=== PATIENT | male | born 1955 ===

== ENCOUNTER 2017-11-06 14:54 | Outpatient (RCR) | payer OTHER ==
[~2017-11-06] VITALS: Ht 180.3 cm; Wt 92.5 kg
[~2017-11-06 14:54] MED LIST: AUG875 PO; CIP500 PO; HYOS0.3729 PO; IBU600 PO; LOR5 PO; LOR7.5/325 PO; MET10 PO; METR-1 PO; NO RTN MEDS; PER PO; PRO25 PO
--- NOTE | 2017-11-09 13:42 | Medical Nutrition Therapy ---
Nutrition Anthropometrics Height (Inches): 71 (stated) Weight (Pounds): 204 (stated) Derrick Nutrition Score: Derrick Nutrition Risk Score: Dietary Referral Nutrition Risk Factors: Nutrition Risk Comment: Nutrition/Food History Breakfast: egg, toast, banana, milk Lunch: grilled cheese/soup or sand /chips or fries occasional salad Dinner: meat, 1c potatoe ,1c veg, or pancakes & fruit Snacks: cookies, ice cream, granola bar, banana Nutritional Education Nutrition Education Topic: Diabetic Nutrition Learning Readiness: Interested Teaching Methods: Discussion, Handout, Demonstration Teaching Recipient: Patient, Significant Other Nutrition Counseling: Pt states dx diabetes 5 years ago but didn't attend classes at that time. States has lost 50# in the past 10 year by trying. Pt states does not do very much exercise at this time but will be starting cardio rehab. Pt set a behvioural goal or 15# wt loss by increaseing exercise and limiting CHO to 60gm/meal. Reviewed glycemic response. Discussed CHO counting and plate method . Provided meal plan of 60gm CHO or 2c using plate method. Nutrition Monitoring & Eval RD Patient Assessment Time: 75 minutes Nutritional Comment: Provided 75 minutes of MNT for diabetes. Set behavioural goal and support plan Copies To Copies to: LIBBY STEVE BETH Nov 06, 2017 17:37
[2017-12-03] MEDS ORDERED: NIT4 SL (17:50)
[2017-12-03] MEDS ORDERED: ROSU5TAB8 PO (17:50)
[2017-12-03] MEDS ORDERED: CLOP75TA PO (17:50)
[2017-12-03] MEDS ORDERED: LISI5TAB25 PO (17:50)
[2017-12-03] MEDS ORDERED: METF-410 PO (17:50)
[2017-12-03] MEDS ORDERED: ASPI-1471 PO (18:05)
--- NOTE | 2017-12-05 16:15 | Medical Nutrition Therapy ---
Nutritional Education Nutrition Education Topic: Diabetic Nutrition Learning Readiness: Interested Teaching Methods: Discussion, Handout, Demonstration Response to Teaching: Verbalize understanding Teaching Recipient: Patient, Significant Other Nutrition Counseling: Provided group diabetes education on nutrtion. Reveiwed: process of digestion; function of CHO, protein and fat; glycemic index; reading labels, portion sizes; heart healthy intake; eating out, alcohol. Nutrition Monitoring & Eval RD Patient Assessment Time: 60 minutes Nutritional Comment: Provided 60 minutes of diabetes education in a group setting. Copies To Copies to: LIBBY STEVE BETH Dec 05, 2017 16:15
== END 2017-12-11 ==
LOC: DIET 14:54
PROVIDERS: ATTEND Nurse Practitioner Family
DX: E11.9 Type 2 diabetes mellitus without complications (principal); E78.5 Hyperlipidemia, unspecified
CPT/HCPCS: 97802; G0109

== ENCOUNTER 2017-12-03 17:43 | Emergency (ER) | payer OTHER ==
[~2017-12-03] VITALS: Ht 180.3 cm; Wt 92.5 kg
[2017-12-03] MEDS ORDERED: METF-410 PO (17:50)
[2017-12-03] MEDS ORDERED: NIT4 SL (17:50)
[2017-12-03] MEDS ORDERED: LISI5TAB25 PO (17:50)
[2017-12-03] MEDS ORDERED: CLOP75TA PO (17:50)
[2017-12-03] MEDS ORDERED: ROSU5TAB8 PO (17:50)
[2017-12-03] MEDS ORDERED: ASPIRIN 81 MG CHEW PO ONE (18:05)
[2017-12-03] MEDS ORDERED: ASPI-1471 PO (18:05)
--- NOTE | 2017-12-03 18:05 | EKG ---
FACILITY: [facility] - [place] PATIENT NAME: IDANIA CHUNG : [id number] MR: [id number] V: [id number] EXAM DATE: ORDERING PHYSICIAN: HEIDY BANGURA TECHNOLOGIST: MARITZA Hanks Reason : CARDIAC Blood Pressure : / mmHG Vent. Rate : 064 BPM Atrial Rate : 064 BPM P-R Int : 156 ms QRS Dur : 100 ms QT Int : 412 ms P-R-T Axes : 073 054 057 degrees QTc Int : 425 ms Normal sinus rhythm Cannot rule out Anterior infarct (cited on or before 03-DEC-2017) Abnormal ECG When compared with ECG of 30-OCT-2017 11:22, No significant change was found Confirmed by EDUAR WANG ([id number]) on 12/03/2017 8:58:22 PM Referred By: MARY Confirmed By:EDUAR WANG
[2017-12-03 18:11] LABS: PLATELET COUNT, AUTOMATED 200 K/uL (150-450)
--- NOTE | 2017-12-03 18:11 | ER Report ---
History and Physical Time Seen By MD: 17:52 Hx. of Stated Complaint: PT REPORTS CHEST PAIN THAT STARTED LAST NIGHT WITH PAIN DOWN R ARM (HEIDY BANGURA PA-C) HPI/ROS CHIEF COMPLAINT: Chest pain HISTORY OF PRESENT ILLNESS: Patient is a 62-year-old male coming by his , who presents to ED with complaint of chest pain in his head intermittently for the last 2 days. Patient states that he had Deandre didn't placed 1 month ago at [facility] after he was having some intermittent chest pain. He states that he has been going to cardiac rehabilitation and did go today. He states that he felt good at cardiac rehabilitation denying any chest pain with exercise there. He states that he has been having some this intermittent chest pain but does not seem to be related to exertion or eating. He states that it feels like indigestion but is uncertain. He denies any shortness of breath. He states that it does feel slightly different than his chest pain previously when he and a stent placed. He denies any palpitations. He is not having any nausea or vomiting. REVIEW OF SYSTEMS: Constitutional: No fever, no chills. Eyes: No discharge. ENT: No sore throat. Cardiovascular: See history of present illness. Respiratory: See history of present illness. No cough. Gastrointestinal: No abdominal pain, no vomiting. Genitourinary: No hematuria. Musculoskeletal: No back pain. Skin: No rashes. Neurological: No headache. (HEIDY ABNGURA PA-C) Allergies: Coded Allergies: No Known Allergies (Verified Allergy, Mild, 12/03/17) Home Meds Reported Medications Aspirin (ASPIR 81) 81 Mg Tablet.dr, 81 MG PO QDAY, TAB 12/03/17 Metformin Hcl (METFORMIN HCL) 500 Mg Tablet, 1 TAB PO BID, TAB 12/03/17 Clopidogrel Bisulfate (CLOPIDOGREL) 75 Mg Tablet, 1 TAB PO QDAY, TAB 12/03/17 Lisinopril (LISINOPRIL) 5 Mg Tablet, 5 MG PO QDAY, TAB 12/03/17 Rosuvastatin Calcium (CRESTOR) 5 Mg Tablet, 5 MG PO QDAY 12/03/17 Nitroglycerin (NITROSTAT) 0.4 Mg Subl, 0.4 MG SL Q5MIN 12/03/17 Discontinued Reported Medications Ibuprofen (Motrin) 600 Mg Tab, 600 MG PO TID, 0 Refills TAKE WITH FOOD 05/15/11 [No Rtn Meds] No Conflict Check, 0 Refills 05/15/09 Reviewed Nurses Notes: Yes Old Medical Records Reviewed: Yes (HEIDY BANGURA PA-C) Hx Smoking: No (HEIDY BANGURA PA-C) Constitutional Vital Sign - Last 24 Hours 12/03/17 12/03/17 12/03/17 12/03/17 17:43 17:47 17:48 17:49 Temp 98.1 Pulse 62 Resp 16 16 B/P (MAP) 145/85 151/96 (114) 145/85 (105) Pulse Ox 94 95 O2 Delivery Room Air 12/03/17 12/03/17 12/03/17 12/03/17 17:53 17:58 18:03 18:08 Pulse 67 72 62 64 Resp 11 17 10 12 Pulse Ox 95 95 94 95 12/03/17 12/03/17 12/03/17 12/03/17 18:13 18:18 18:23 18:28 Pulse 63 61 64 64 Resp 14 11 14 15 Pulse Ox 94 96 93 93 12/03/17 12/03/17 12/03/17 12/03/17 18:33 18:38 18:53 18:57 Pulse 62 68 61 Resp 10 11 8 B/P (MAP) 127/79 (95) Pulse Ox 93 94 95 12/03/17 12/03/17 12/03/17 12/03/17 19:02 19:17 19:30 19:32 Pulse 62 62 62 Resp 12 10 35 B/P (MAP) 124/71 (88) Pulse Ox 93 94 93 12/03/17 12/03/17 12/03/17 12/03/17 19:47 20:00 20:02 20:07 Pulse 66 60 63 Resp 14 8 11 B/P (MAP) 143/88 (106) Pulse Ox 93 96 95 12/03/17 12/03/17 12/03/17 12/03/17 20:22 20:30 20:37 20:52 Pulse 65 66 69 Resp 25 41 51 B/P (MAP) 148/89 (108) Pulse Ox 93 95 94 12/03/17 12/03/17 12/03/17 12/03/17 21:00 21:07 21:22 21:27 Pulse 69 68 65 Resp 23 15 12 B/P (MAP) 146/91 (109) Pulse Ox 91 93 96 12/03/17 12/03/17 12/03/17 12/03/17 21:30 21:42 21:57 22:00 Pulse 77 85 Resp 20 21 B/P (MAP) 141/95 (110) 153/88 (109) Pulse Ox 93 92 12/03/17 12/03/17 12/03/17 22:12 22:27 22:30 Pulse 66 60 Resp 24 46 B/P (MAP) 134/84 (101) Pulse Ox 93 95 (J LUISCHARISSA Sandoval DO) Physical Exam General Appearance: The patient is alert, has no immediate need for airway protection and no signs of toxicity. Patient appears to be in no acute distress. Eyes: Pupils equal and round no pallor or injection. ENT, Mouth: Mucous membranes are moist. Respiratory: There are no retractions, lungs are clear to auscultation. Cardiovascular: Regular rate and rhythm. Gastrointestinal: Abdomen is soft and non tender, no masses, bowel sounds normal. Skin: Warm and dry, no rashes. Musculoskeletal: Neck is supple non tender. Extremities are nontender, nonswollen and have full range of motion. DIFFERENTIAL DIAGNOSIS: After history and physical exam differential diagnosis was considered for chest pain including but not limited to myocardial ischemia, pericarditis pulmonary embolus, chest wall pain, pleural inflammation and pulmonary infectious causes. (HEIDY BANGURA PA-C) Medical Decision Making Data Points Result Diagram: 12/03/17 1755 12/03/17 1755 Laboratory Hematology Test 12/03/17 17:55 12/03/17 22:00 Red Blood Count 5.42 M/uL (4.00-5.60) Mean Corpuscular Volume 85.0 fL (80.0-96.0) Mean Corpuscular Hemoglobin 28.6 pg (26.0-33.0) Mean Corpuscular Hemoglobin Concent 33.7 g/dL (32.0-36.0) Red Cell Distribution Width 13.3 % (11.5-14.5) Mean Platelet Volume 6.9 fL (7.2-11.1) Neutrophils (%) (Auto) 63.0 % (39.4-72.5) Lymphocytes (%) (Auto) 26.7 % (17.6-49.6) Monocytes (%) (Auto) 7.0 % (4.1-12.4) Eosinophils (%) (Auto) 2.4 % (0.4-6.7) Basophils (%) (Auto) 0.9 % (0.3-1.4) Nucleated RBC Relative Count (auto) 0.0 /100WBC Neutrophils # (Auto) 3.9 K/uL (2.0-7.4) Lymphocytes # (Auto) 1.7 K/uL (1.3-3.6) Monocytes # (Auto) 0.4 K/uL (0.3-1.0) Eosinophils # (Auto) 0.1 K/uL (0.0-0.5) Basophils # (Auto) 0.1 K/uL (0.0-0.1) Nucleated RBC Absolute Count (auto) 0.00 K/uL Prothrombin Time 13.3 seconds (12.0-14.4) Prothromb Time International Ratio 1.01 Activated Partial Thromboplast Time 26 seconds (23-35) Sodium Level 139 mmol/L (137-145) Potassium Level 3.9 mmol/L (3.5-5.0) Chloride Level 102 mmol/L (98-107) Carbon Dioxide Level 26 mmol/L (22-30) Blood Urea Nitrogen 18 mg/dl (9-21) Creatinine 1.00 mg/dl (0.66-1.25) Glomerular Filtration Rate Calc > 60.0 Random Glucose 91 mg/dl (75-110) Calcium Level 9.2 mg/dl (8.4-10.2) Total Bilirubin 1.4 mg/dl (0.2-1.3) Aspartate Amino Transf (AST/SGOT) 30 U/L (0-35) Alanine Aminotransferase (ALT/SGPT) 42 U/L (0-56) Alkaline Phosphatase 57 U/L (0-126) Total Protein 7.6 gm/dl (6.3-8.2) Albumin 4.3 g/dl (3.5-5.0) Troponin I < 0.012 ng/ml Chemistry Test 12/03/17 17:55 12/03/17 22:00 White Blood Count 6.2 k/uL (4.5-11.0) Red Blood Count 5.42 M/uL (4.00-5.60) Hemoglobin 15.5 g/dL (14.0-18.0) Hematocrit 46.0 % (42.0-52.0) Mean Corpuscular Volume 85.0 fL (80.0-96.0) Mean Corpuscular Hemoglobin 28.6 pg (26.0-33.0) Mean Corpuscular Hemoglobin Concent 33.7 g/dL (32.0-36.0) Red Cell Distribution Width 13.3 % (11.5-14.5) Platelet Count 200 K/uL (150-450) Mean Platelet Volume 6.9 fL (7.2-11.1) Neutrophils (%) (Auto) 63.0 % (39.4-72.5) Lymphocytes (%) (Auto) 26.7 % (17.6-49.6) Monocytes (%) (Auto) 7.0 % (4.1-12.4) Eosinophils (%) (Auto) 2.4 % (0.4-6.7) Basophils (%) (Auto) 0.9 % (0.3-1.4) Nucleated RBC Relative Count (auto) 0.0 /100WBC Neutrophils # (Auto) 3.9 K/uL (2.0-7.4) Lymphocytes # (Auto) 1.7 K/uL (1.3-3.6) Monocytes # (Auto) 0.4 K/uL (0.3-1.0) Eosinophils # (Auto) 0.1 K/uL (0.0-0.5) Basophils # (Auto) 0.1 K/uL (0.0-0.1) Nucleated RBC Absolute Count (auto) 0.00 K/uL Prothrombin Time 13.3 seconds (12.0-14.4) Prothromb Time International Ratio 1.01 Activated Partial Thromboplast Time 26 seconds (23-35) Glomerular Filtration Rate Calc > 60.0 Calcium Level 9.2 mg/dl (8.4-10.2) Total Bilirubin 1.4 mg/dl (0.2-1.3) Aspartate Amino Transf (AST/SGOT) 30 U/L (0-35) Alanine Aminotransferase (ALT/SGPT) 42 U/L (0-56) Alkaline Phosphatase 57 U/L (0-126) Total Protein 7.6 gm/dl (6.3-8.2) Albumin 4.3 g/dl (3.5-5.0) Troponin I < 0.012 ng/ml Coagulation Test 12/03/17 17:55 Prothrombin Time 13.3 seconds Prothromb Time International Ratio 1.01 Activated Partial Thromboplast Time 26 seconds (CHARISSA AYERS DO) EKG/Imaging EKG Interpretation 12 lead EKG: Rhythm: Normal sinus rhythm, rate 64 bpm [place]: normal QRS: normal ST segments: No acute ST changes identified. Compared to previous EKG from 10/30/2018 and appears to be similar. Monitor Interpretation: Normal Sinus Rhythm Imaging CXR: IMPRESSION: 1. No acute cardiopulmonary process. 2. Tiny nodular opacity in the right midlung, not well appreciated previously. This could represent a small granuloma or postinflammatory. Suggest a follow-up chest x-ray in 3-6 months for reevaluation. Report Dictated By: Fco Randhawa at 12/03/2017 6:22 PM Report E-Signed By: Fco Randhawa at 12/03/2017 6:24 PM (HEIDY BANGURA PA-C) ED Course/Re-evaluation ED Course Will obtain labs, EKG, chest x-ray. Patient will be given aspirin 324 mg by mouth now. 12/03/2017 7:11:42 pm - discussed all labs, EKG, chest x-ray with patient. Everything appears to be essentially normal. Discussed patient with health information provider pianos and organs salesperson at [facility], Dr. Frost, who advises that patient stay for repeat troponin in 4-6 hours. He states that if this repeat troponin is normal and patient could be discharged safely with close follow-up with cardiology. He has point with cardiology in [address] Van. Discussed CXR result of lung nodule with pt and recommendation to have this rechecked in 3-6 months. Decision to Disposition Date: Dec 03, 2017 Turned Over 12/03/2017 7:46:16 pm : The care of the patient was turned over to Dr. Ayers, ED. Heidy Bangura PA-C I authorize my typed signature that I authenticated this report. (HEIDY BANGURA PA-C) Decision to Disposition Date: Dec 03, 2017 Decision to Disposition Time: 22:35 (CHARISSA AYERS DO) Depart Departure Latest Vital Signs Vital Signs Date Time Temp Pulse Resp B/P (MAP) Pulse Ox O2 Delivery O2 Flow Rate FiO2 12/03/17 22:30 134/84 (101) 12/03/17 22:27 60 46 95 12/03/17 17:43 98.1 Room Air (CHARISSA AYERS DO) Impression: Primary Impression: Chest pain of unknown etiology Additional Impression: Status post angioplasty with stent Condition: Improved Disposition: HOME OR SELF-CARE Patient Instructions: Chest Pain (ED) Additional Instructions: Follow-up with your health information provider as soon as possible Problem Qualifiers HEIDY BANGURA PA-C Dec 03, 2017 18:11 CHARISSA AYERS DO Dec 03, 2017 22:37
--- NOTE | 2017-12-03 18:28 | RADIOLOGY IMAGING REPORT ---
FACILITY: [facility] PATIENT NAME: Bam Lilly : 1955 MR: [id number] V: [id number] EXAM DATE: ORDERING PHYSICIAN: HEIDY BANGURA TECHNOLOGIST: Location: [facility] - [place] Patient: Bam Lilly : 1955 Visit/Account:[id number] Date of Sevice: 12/03/2017 CHEST SINGLE AP Indication: Chest pain.. Comparison: None available Findings: Cardiomediastinal silhouette and pulmonary vessels within normal limits. There is no focal infiltrate or lobar consolidation. No pneumothorax or pleural effusion. There is a tiny nodular density seen in the right mid lung, not well appreciated previously. Upper ab domen is unremarkable. No acute bony abnormality. IMPRESSION: 1. No acute cardiopulmonary process. 2. Tiny nodular opacity in the right midlung, not well appreciated previously. This could represent a small granuloma or postinflammatory. Suggest a follow-up chest x-ray in 3-6 months for reevaluation. Report Dictated By: Fco Randhawa at 12/03/2017 6:22 PM Report E-Signed By: Fco Randhawa at 12/03/2017 6:24 PM WSN:[id number]
[2017-12-03 18:37] LABS: INR 1.01
[2017-12-03 22:30] VITALS: BP 134/84
== END 2017-12-03 22:44 | disposition home or self-care (01) ==
LOC: ER 18:09
DX: R07.9 Chest pain, unspecified (principal); Z95.820 Peripheral vascular angioplasty status with implants and grafts; R94.31 Abnormal electrocardiogram [ECG] [EKG]
CPT/HCPCS: 71045; 82040; 82247; 82310; 82374; 82435; 82565; 82947; 84075; 84132; 84155; 84295; 84450; 84460; 84484; 84520; 85025; 85610; 85730; 93005; 99284

== ENCOUNTER 2018-02-04 09:00 | Outpatient (RCR) | payer OTHER ==
[2017-11-07 17:20] VITALS: BP 152/88
[2017-11-07 17:21] VITALS: BP 140/90
--- NOTE | 2017-11-07 17:44 | CARDIAC REHAB PLAN OF CARE ---
Physician: Shaylee Michael APRN, [facility]- Patient is being seen: Jignesh Xavier Medical Diagnosis: Unstable Angina, Stent x 1 (LAD) Date of Initial Evaluation: 11/07/17 SHORT TERM GOALS Short Term Goals Due Date: 12/08/17 Short Term Goals: 62 year old male phase II patient comes to cardiac rehab after unstable angina on 2016 lead to 1 stent placed in the 99% occluded LAD. Patient is also a diabetic, but otherwise healthy, and is not restricted orthopedically with any exercise program for cardiac rehab. Short term goals are for the patient to achieve 150 minutes each week of a moderate level cardio exercise along with weight resistance exercise at least twice a week. Patient will also adjust diet to meet diabetic and heart healthy standards. Short Term Goals Met: Short Term Goals Not Met Due To: CLERICAL ASSIGNER GOALS Manual Plate Filler Goal Due Date: 01/08/18 Manual Plate Filler Goals: intermission coordinator goals will be to be consistent with achieving the weekly exercise goals and to eat healthy meals as often as possible. Fpc Goals Met: Fpc Goals Not Met Due To: PATIENT'S GOALS Patient Goals Due Date: 12/08/17 Patient Goals: Patient goals are to extend his life and to return to running some 5K races. Patient Goals Met: Patient Goals Not Met Due To: Cardiac Rehabilitation Plan of Care Comment: Cardiac rehab staff will monitor, record, and evaluate vitals, ECG, and exercise results to provide the best plan of care throughout the 36 visit phase II program. CR staff will motivate and educate the patient during visits for rehab. VANIA
[2017-11-28 13:17] VITALS: BP 122/80
[2017-11-28 13:18] VITALS: BP 108/62
[2017-11-30 13:16] VITALS: BP 118/78
[2017-11-30 13:17] VITALS: BP 118/68
[2017-12-03 13:28] VITALS: BP 118/72
[2017-12-03 13:29] VITALS: BP 132/66
[2017-12-05 13:10] VITALS: BP 114/70
[2017-12-05 13:11] VITALS: BP 110/62
[2017-12-07 18:18] VITALS: BP 124/84
[2017-12-07 18:19] VITALS: BP 106/64
--- NOTE | 2017-12-07 19:09 | CARDIAC REHAB PLAN OF CARE ---
Physician: Shaylee Michael APRN,[facility]- Patient is being seen: Jignesh Morenita [facility] Diagnosis: Stent x 1 (LAD) Date of Initial Evaluation: 11/07/17 SHORT TERM GOALS Short Term Goals Due Date: 01/07/18 Short Term Goals: 62 year old male phase II patient comes to cardiac rehab after unstable angina on 2016 lead to 1 stent placed in the 99% occluded LAD. Patient is also a diabetic, but otherwise healthy, and is not restricted orthopedically with any exercise program for cardiac rehab. Short term goals are for the patient to achieve 150 minutes each week of a moderate level cardio exercise along with weight resistance exercise at least twice a week. Patient will also adjust diet to meet diabetic and heart healthy standards. Short Term Goals Met: Patient has made 6 visits to cardiac rehab and tolerates 45-50 minutes of moderate level cardio exercise, and adds in weight resistance exercise. During exercise SPO2 levels remain in the 90's on room air and the production gear cutter shows a NSR-ST without ectopy and rates up to 112. 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 Patient will also continue to be consistent with eating a heart healthy diet. Group Home Goals Met: Patient has increased duration and intensity of exercise. Centrifugal Spinner Goals Not Met Due To: PATIENT'S GOALS Patient Goals Due Date: 01/07/18 Patient Goals: Patient goals remaint to extend life, gain better cardiac and overall health, and to be able to return to running a 5K. Patient Goals Met: Patient Goals Not Met Due To: Cardiac Rehabilitation Plan of Care Comment: Cardiac rehab staff will monitor, record, and evaluate vitals, ECG, and exercise results to provide the best plan of care for the patient throughout the phase II, 36 visit program. CR staff will motivate and educate the patient during visits for rehab. VANIA
[2017-12-10 13:33] VITALS: BP_SYST 120; BP_SYST 122; BP_DIAS 68; BP_DIAS 78
[2017-12-12 13:53] VITALS: BP 108/70
[2017-12-12 13:54] VITALS: BP 120/64
[2017-12-14 12:52] VITALS: BP 122/78
[2017-12-14 12:58] VITALS: BP 120/72
[2017-12-17 12:56] VITALS: BP 130/78
[2017-12-17 12:57] VITALS: BP 118/70
[2017-12-19 12:51] VITALS: BP 140/80
[2017-12-19 12:52] VITALS: BP 132/64
[2017-12-21 17:43] VITALS: BP 124/70
[2017-12-21 17:44] VITALS: BP 110/62
[2017-12-24 13:33] VITALS: BP 140/78
[2017-12-24 13:34] VITALS: BP 117/72
[2017-12-26 13:40] VITALS: BP 132/78
[2017-12-26 13:44] VITALS: BP 136/78
[2017-12-28 13:05] VITALS: BP 132/82
[2017-12-28 13:06] VITALS: BP 110/72
[2017-12-31 13:20] VITALS: BP 128/76
[2017-12-31 13:21] VITALS: BP 124/60
[2018-01-02 16:33] VITALS: BP_SYST 124; BP_SYST 128; BP_DIAS 66; BP_DIAS 72
[2018-01-04 18:05] VITALS: BP_SYST 112; BP_SYST 122; BP_DIAS 70; BP_DIAS 80
[2018-01-07 13:02] VITALS: BP 132/80
[2018-01-07 13:03] VITALS: BP 144/76
--- NOTE | 2018-01-07 13:35 | CARDIAC REHAB PLAN OF CARE ---
Physician: Shaylee FARRELL Patient is being seen: Jignesh Xavier [facility] Diagnosis: Stent x 1 (LAD) Date of Initial Evaluation: 11/07/17 SHORT TERM GOALS Short Term Goals Due Date: 02/04/18 Short Term Goals: 62 year old male phase II patient comes to cardiac rehab after unstable angina on 2016 lead to 1 stent placed in the 99% occluded LAD. Patient is also a diabetic, but otherwise healthy, and is not restricted orthopedically with any exercise program for cardiac rehab. Short term goals are for the patient to achieve 150 minutes each week of a moderate level cardio exercise along with weight resistance exercise at least twice a week. Patient will also adjust diet to meet diabetic and heart healthy standards. Short Term Goals Met: Patient has made 19 visits to cardiac rehab and tolerates 40 minutes of a moderate level of cardio and a portion of his 25 minutes on the treadmill during a HIIT routine is at 6.2 METs. Patient also tolerates weight resistence with a 6 pound dumbbell upper body workout. During exercise SPO2 levels remain in the 90's on room air and the secured entrance monitor shows a NSR- ST without ectopy and rates up to 132. RPE is usually between 3-5 on the 1/10 RPE scale. Short Term Goals Not Met Due To: Needs to control healthy eating better and hopefully improve on weight loss goals. TAX ECONOMIST GOALS Clinical Laboratory Aide Goal Due Date: 03/07/18 Clinical Laboratory Aide Goals: Patient will maintain that consistency of exercise, achieving 150 minutes of moderate level cardio. Continue with HIIT type of workout to also include a number of minutes at a high intensity level. Patient will continue to add in weight resistance at least twice a week. Patient has improved diet to include heart healthy choices and will continue to be consistent with healthy choices and proper portions. Mcfp Goals Met: Patient has improved duration, and intensity of exercise and has better endurance, energy, and improved health. Mcfp Goals Not Met Due To: Patients improvements in diet should allow for healthy weight loss towards a his max healthy BMI goal weight of 179 pounds. PATIENT'S GOALS Patient Goals Due Date: 02/04/18 Patient Goals: Patient goals remain to extend life, improve cardiac and overall health with exercise and improved diet. Patient Goals Met: Patient Goals Not Met Due To: Cardiac Rehabilitation Plan of Care Comment: The Cardiac Rehab staff will continue to monitor, record, and evaluate vitals, ECG, and exercise results to provide the best plan of care for the patient throughout the 36 visit phase II program. CR staff will educate and motivate the patient during visits for rehab. VANIA
[2018-01-09 12:56] VITALS: BP 102/58
[2018-01-09 12:58] VITALS: BP 112/58
[2018-01-11 13:00] VITALS: BP 122/70
[2018-01-11 13:01] VITALS: BP 114/68
[2018-01-14 13:16] VITALS: BP 138/82
[2018-01-14 13:17] VITALS: BP 128/66
[2018-01-16 13:03] VITALS: BP 138/76
[2018-01-16 13:05] VITALS: BP 116/66
[2018-01-18 18:23] VITALS: BP_SYST 122; BP_SYST 124; BP_DIAS 74; BP_DIAS 80
[2018-01-18 18:24] VITALS: BP_SYST 122; BP_DIAS 82; BP_DIAS 84
[2018-01-21 13:37] VITALS: BP 130/84
[2018-01-21 13:38] VITALS: BP 118/70
[2018-01-23 12:36] VITALS: BP 120/80
[2018-01-23 12:37] VITALS: BP 126/74
[2018-01-25 13:11] VITALS: BP_SYST 118; BP_SYST 122; BP_DIAS 68; BP_DIAS 82
[2018-01-28 13:14] VITALS: BP 116/84
[2018-01-28 13:15] VITALS: BP 132/78
[2018-01-30 08:33] VITALS: BP 134/88
[2018-01-30 08:34] VITALS: BP 132/84
[2018-02-01 13:07] VITALS: BP 130/78
[2018-02-01 13:13] VITALS: BP 130/78
[~2018-02-04 09:00] MED LIST changes: +ASPI-1471 PO; +CLOP75TA PO; +LISI5TAB25 PO; +METF-410 PO; +NIT4 SL; +ROSU5TAB8 PO
[2018-02-04 13:30] VITALS: BP 138/82
[2018-02-04 13:32] VITALS: BP 132/74
== END 2018-02-05 ==
LOC: CARD 09:00
PROVIDERS: ATTEND Internal Medicine Cardiovascular Disease
DX: I25.119 Atherosclerotic heart disease of native coronary artery with unspecified angina pectoris (principal); Z95.5 Presence of coronary angioplasty implant and graft; E11.9 Type 2 diabetes mellitus without complications
CPT/HCPCS: 93798

== ENCOUNTER 2018-02-18 08:00 | Outpatient (RCR) | payer OTHER ==
[2018-02-06 17:04] VITALS: BP 110/82
[2018-02-06 17:06] VITALS: BP 122/80
[2018-02-08 13:19] VITALS: BP 114/78
[2018-02-08 13:20] VITALS: BP 115/66
[2018-02-11 13:16] VITALS: BP 140/82
[2018-02-11 13:17] VITALS: BP 138/82
[2018-02-13 13:14] VITALS: BP 118/78
[2018-02-13 13:15] VITALS: BP 118/72
[2018-02-18 13:01] VITALS: BP 140/88
[2018-02-18 13:02] VITALS: BP 132/78
== END 2018-02-18 18:00 | disposition home or self-care (01) ==
LOC: CARD 08:00
PROVIDERS: ATTEND Internal Medicine Cardiovascular Disease
DX: I25.119 Atherosclerotic heart disease of native coronary artery with unspecified angina pectoris (principal); Z95.5 Presence of coronary angioplasty implant and graft; E11.9 Type 2 diabetes mellitus without complications
CPT/HCPCS: 93798

== ENCOUNTER 2018-05-06 11:53 | Emergency (ER) | payer OTHER ==
[~2018-05-06 11:53] MED LIST changes: -METF-410 PO; +METF-411 PO
--- NOTE | 2018-05-06 12:01 | ER Report ---
History and Physical Time Seen By MD: 12:00 HPI/SKY CHIEF COMPLAINT: Chest pain HISTORY OF PRESENT ILLNESS: Is is a 62-year-old male who presents to the emergency department for chest pain. Patient had one stent placed in the LAD in October which was 99% occluded. Patient states that over the last 10 days or so he's had some epigastric lower chest pain diffuse and intermittent, intermittent nausea no vomiting. Patient states that today he became a little bit more concerned as the discomfort across the epigastric area intensified. Patient also states that he was recently trimming some trees and since then has had some increased epigastric lower chest pain and feeling tired. No diarrhea. No shortness of breath, no fevers, aches or chills. No headaches or rashes. No dysuria. Patient has also been doing very well in cardiac rehabilitation since he had the stent placed. REVIEW OF SYSTEMS: Constitutional: No fever, no chills. Eyes: No discharge. ENT: No sore throat. Cardiovascular: As above. Respiratory: No cough, no shortness of breath. Gastrointestinal: As above. Genitourinary: No hematuria. Musculoskeletal: No back pain. Skin: No rashes. Neurological: No headache. Allergies: Coded Allergies: No Known Allergies (Verified Allergy, Mild, 05/06/18) Home Meds Reported Medications Aspirin (ASPIR 81) 81 Mg Tablet.dr, 81 MG PO QDAY, TAB 12/03/17 Metformin Hcl (METFORMIN HCL) 500 Mg Tablet, 2 TAB PO BID, TAB 12/03/17 Clopidogrel Bisulfate (CLOPIDOGREL) 75 Mg Tablet, 1 TAB PO QDAY, TAB 12/03/17 Lisinopril (LISINOPRIL) 5 Mg Tablet, 5 MG PO QDAY, TAB 12/03/17 Rosuvastatin Calcium (CRESTOR) 5 Mg Tablet, 5 MG PO QDAY 12/03/17 Nitroglycerin (NITROSTAT) 0.4 Mg Subl, 0.4 MG SL Q5MIN 12/03/17 Past Medical/Surgical History Patient has a past medical and surgical history of angina, hypertension, hypercholesterolemia, pneumonia, wears glasses, type II diabetes. Reviewed Nurses Notes: Yes Hx Smoking: No Constitutional Vital Sign - Last 24 Hours 05/06/18 05/06/18 05/06/18 05/06/18 11:57 12:00 12:30 13:00 Pulse 64 66 64 60 Resp 20 26 10 17 B/P (MAP) 151/87 151/78 (102) 130/78 (95) 132/84 (100) Pulse Ox 95 94 96 98 O2 Delivery Room Air 05/06/18 13:30 Pulse 56 Resp 8 B/P (MAP) 135/84 (101) Physical Exam General Appearance: The patient is alert, has no immediate need for airway protection and no signs of toxicity. Eyes: Pupils equal and round no pallor or injection. ENT, Mouth: Mucous membranes are moist. Respiratory: There are no retractions, lungs are clear to auscultation. Cardiovascular: Regular rate and rhythm, no murmurs, clicks or rubs. No peripheral edema. Gastrointestinal: Abdomen is soft and non tender, no masses, bowel sounds normal. Neurological: Alert and oriented 4. Moving all extremities. Following all commands. No focal neuro deficits. Skin: Warm and dry, no rashes. Musculoskeletal: Neck is supple non tender. Extremities are nontender, nonswollen and have full range of motion. DIFFERENTIAL DIAGNOSIS: After history and physical exam differential diagnosis was considered for chest pain including but not limited to myocardial ischemia, pericarditis pulmonary embolus, chest wall pain, pleural inflammation and pulmonary infectious causes. Medical Decision Making Data Points Result Diagram: 05/06/18 1207 05/06/18 1207 Laboratory Hematology Test 05/06/18 12:07 Red Blood Count 5.29 M/uL (4.00-5.60) Mean Corpuscular Volume 85.5 fL (80.0-96.0) Mean Corpuscular Hemoglobin 29.3 pg (26.0-33.0) Mean Corpuscular Hemoglobin Concent 34.3 g/dL (32.0-36.0) Red Cell Distribution Width 13.3 % (11.5-14.5) Mean Platelet Volume 7.0 fL (7.2-11.1) Neutrophils (%) (Auto) 63.5 % (39.4-72.5) Lymphocytes (%) (Auto) 27.4 % (17.6-49.6) Monocytes (%) (Auto) 6.3 % (4.1-12.4) Eosinophils (%) (Auto) 2.3 % (0.4-6.7) Basophils (%) (Auto) 0.5 % (0.3-1.4) Nucleated RBC Relative Count (auto) 0.0 /100WBC Neutrophils # (Auto) 3.7 K/uL (2.0-7.4) Lymphocytes # (Auto) 1.6 K/uL (1.3-3.6) Monocytes # (Auto) 0.4 K/uL (0.3-1.0) Eosinophils # (Auto) 0.1 K/uL (0.0-0.5) Basophils # (Auto) 0.0 K/uL (0.0-0.1) Nucleated RBC Absolute Count (auto) 0.00 K/uL Sodium Level 137 mmol/L (137-145) Potassium Level 3.9 mmol/L (3.5-5.0) Chloride Level 103 mmol/L (98-107) Carbon Dioxide Level 23 mmol/L (22-30) Blood Urea Nitrogen 15 mg/dl (9-21) Creatinine 1.00 mg/dl (0.66-1.25) Glomerular Filtration Rate Calc > 60.0 Random Glucose 138 mg/dl (75-110) Calcium Level 9.1 mg/dl (8.4-10.2) Total Bilirubin 1.9 mg/dl (0.2-1.3) Aspartate Amino Transf (AST/SGOT) 27 U/L (0-35) Alanine Aminotransferase (ALT/SGPT) 33 U/L (0-56) Alkaline Phosphatase 50 U/L (0-126) Troponin I < 0.012 ng/ml Total Protein 7.0 gm/dl (6.3-8.2) Albumin 4.3 g/dl (3.5-5.0) Chemistry Test 05/06/18 12:07 White Blood Count 5.8 k/uL (4.5-11.0) Red Blood Count 5.29 M/uL (4.00-5.60) Hemoglobin 15.5 g/dL (14.0-18.0) Hematocrit 45.2 % (42.0-52.0) Mean Corpuscular Volume 85.5 fL (80.0-96.0) Mean Corpuscular Hemoglobin 29.3 pg (26.0-33.0) Mean Corpuscular Hemoglobin Concent 34.3 g/dL (32.0-36.0) Red Cell Distribution Width 13.3 % (11.5-14.5) Platelet Count 208 K/uL (150-450) Mean Platelet Volume 7.0 fL (7.2-11.1) Neutrophils (%) (Auto) 63.5 % (39.4-72.5) Lymphocytes (%) (Auto) 27.4 % (17.6-49.6) Monocytes (%) (Auto) 6.3 % (4.1-12.4) Eosinophils (%) (Auto) 2.3 % (0.4-6.7) Basophils (%) (Auto) 0.5 % (0.3-1.4) Nucleated RBC Relative Count (auto) 0.0 /100WBC Neutrophils # (Auto) 3.7 K/uL (2.0-7.4) Lymphocytes # (Auto) 1.6 K/uL (1.3-3.6) Monocytes # (Auto) 0.4 K/uL (0.3-1.0) Eosinophils # (Auto) 0.1 K/uL (0.0-0.5) Basophils # (Auto) 0.0 K/uL (0.0-0.1) Nucleated RBC Absolute Count (auto) 0.00 K/uL Glomerular Filtration Rate Calc > 60.0 Calcium Level 9.1 mg/dl (8.4-10.2) Total Bilirubin 1.9 mg/dl (0.2-1.3) Aspartate Amino Transf (AST/SGOT) 27 U/L (0-35) Alanine Aminotransferase (ALT/SGPT) 33 U/L (0-56) Alkaline Phosphatase 50 U/L (0-126) Troponin I < 0.012 ng/ml Total Protein 7.0 gm/dl (6.3-8.2) Albumin 4.3 g/dl (3.5-5.0) EKG/Imaging EKG Interpretation 12 lead EKG: Time of EKG 1202. Rhythm: Normal sinus rhythm, ventricular rate 63 bpm. [place]: normal QRS: normal ST segments: No ST depression or elevation identified. No C neck and changes from the 12/03/2017 EKG other than the new EKG showing poor T-wave progression in V2 and inverted P waves in V1 and peaked T waves in V3, V4. Imaging Location: [facility] Patient: Bam Lilly : 1955 Visit/Account:[id number] [facility] [place] 2 VIEWS CHEST INDICATION: Chest pain COMPARISON: 12/03/2017. FINDINGS: Cardiomediastinal silhouette and pulmonary vessels within normal limits. There is no focal infiltrate or lobar consolidation. There is no pneumothorax or pleural effusion. Stable tiny nodular opacity in the mid right lung and no other nodules. Upper abdomen is unremarkable. No acute bony abnormality. IMPRESSION: 1. No acute cardiopulmonary process. Report Dictated By: Fco Randhawa at 05/06/2018 12:37 PM Report E-Signed By: Fco Randhawa at 05/06/2018 12:39 PM WSN:[id number] ED Course/Re-evaluation Clinical Indication for ER IV: IV Access ED Course Patient was admitted to room. A history and physical were obtained. Diagnoses were considered. An IV was started. A CBC, CMP, troponin were obtained. Studies unremarkable, negative troponin. X-ray of the chest showing no acute cardiopulmonary processes. EKG unremarkable. I did review these results with the patient, patient is very relieved to the results. I did tell him I do not have a clear reason sways having the chest discomfort however his cardiac workup today was negative. This could be muscular in nature secondary to his strenuous activity recently. I did tell him that I feel comfortable sending him home at this time with his follow-up appointment with cardiology in 2 weeks. Dentures patient to return to the emergency department for any other concerns worsening symptoms. Patient was in agreement with this plan care and discharged home. Decision to Disposition Date: May 06, 2018 Decision to Disposition Time: 13:16 Depart Departure Latest Vital Signs Vital Signs Date Time Temp Pulse Resp B/P (MAP) Pulse Ox O2 Delivery O2 Flow Rate FiO2 05/06/18 13:30 56 8 135/84 (101) 05/06/18 13:00 98 05/06/18 11:57 Room Air Impression: Primary Impression: Chest pain of unknown etiology Condition: Improved Disposition: HOME OR SELF-CARE Referrals: CARDIOLOGY Patient Instructions: Abdominal Pain (ED), Chest Pain (ED) Additional Instructions: Drink plenty of water, especially in the heat. Get plenty of rest. Continue taking your medications as indicated. Keep your follow up appointment with Cardiology in 2 weeks. Return to the ED for any other concerns or worsening symptoms. There is no signs of cardiac problems today, troponin was negative, ekg unchanged and chest xray is normal. AVELINO ECKERT B[facility]R [facility]-BC May 06, 2018 12:01
[2018-05-06] MEDS ORDERED: ASPIRIN 81 MG CHEW PO ONE (12:05)
[2018-05-06] MEDS ORDERED: ONDANSETRON 4 MG/2 ML VIAL IVP ONE (12:05)
--- NOTE | 2018-05-06 12:12 | EKG ---
FACILITY: [facility] - [place] PATIENT NAME: IDANIA CHUNG : [id number] MR: [id number] V: [id number] EXAM DATE: ORDERING PHYSICIAN: AVELINO ECKERT TECHNOLOGIST: KATHI Hanks Reason : cardiac problem Blood Pressure : / mmHG Vent. Rate : 063 BPM Atrial Rate : 063 BPM P-R Int : 160 ms QRS Dur : 094 ms QT Int : 408 ms P-R-T Axes : 048 019 027 degrees QTc Int : 417 ms Sinus rhythm Probable left atrial enlargement Poor R wave progression anteriorly Nonspecific ST findings Confirmed by MEME ALMAGUER ([id number] on 05/07/2018 6:01:17 AM Referred By: OSL Confirmed By:MEME ALMAGUER
[2018-05-06 12:18] LABS: PLATELET COUNT, AUTOMATED 208 K/uL (150-450)
--- NOTE | 2018-05-06 12:44 | RADIOLOGY IMAGING REPORT ---
FACILITY: [facility] - [place] PATIENT NAME: Bam Lilly : 1955 MR: [id number] V: [id number] EXAM DATE: ORDERING PHYSICIAN: AVELINO ECKERT TECHNOLOGIST: Location: [facility] [place] Patient: Bam Lilly : 1955 Visit/Account:[id number] Date of [place]: 05/06/2018 2 VIEWS CHEST INDICATION: Chest pain COMPARISON: 12/03/2017. FINDINGS: Cardiomediastinal silhouette and pulmonary vessels within normal limits. There is no focal infiltrate or lobar consolidation. There is no pneumothorax or pleural effusion. Stable tiny nodular opacity in the mid right lung and no other nodules. Upper abdomen is unremarkable. No acute bony abnormality. IMPRESSION: 1. No acute cardiopulmonary process. Report Dictated By: Fco Randhawa at 05/06/2018 12:37 PM Report E-Signed By: Fco Randhawa at 05/06/2018 12:39 PM WSN:[id number]
[2018-05-06 13:30] VITALS: BP 135/84
== END 2018-05-06 13:30 | disposition home or self-care (01) ==
LOC: ER 11:55
DX: R07.9 Chest pain, unspecified (principal)
CPT/HCPCS: 71046; 82040; 82247; 82310; 82374; 82435; 82565; 82947; 84075; 84132; 84155; 84295; 84450; 84460; 84484; 84520; 85025; 93005; 99283